=== PATIENT | female | born 1930 | race Caucasian/White ===

== ENCOUNTER 2017-12-25 16:08 | Inpatient (IN) | payer MEDICARE, OTHER ==
[~2017-12-25] VITALS: Ht 152.4 cm; Wt 62.6 kg
[~2017-12-25 16:08] MED LIST: ALLOPURINOL100 MG PO; AMLODIPINE BESYL5 MG PO; BACTRIM DS TAB1 EACH PO; CALCIUM 500+D1 EACH PO; CARAFATE1 GM/10 ML PO; CIPRO500 MG PO; FERROUS SULFAT325 MG PO; GABAPENTIN300 MG PO; LOSARTAN POTAS100 MG PO; METHOCARBAMOL750 MG PO; MYRBETRIQ50 MG PO; OMEPRAZOLE40 MG PO; PANTOPRAZOLE SO40 MG PO; ROBITUSSIN-COU237 ML PEG; TEMAZEPAM15 MG PO; TYLENOL WITH C1 EACH PO; VITAMIN B-121000 MC1; VITAMIN B-121000 MCG IM; VITAMIN D32000 UNIT PO; ZOFRAN ODT4 MG SL
--- OUTSIDE RECORDS SUMMARY | 2017-12-25 16:11 | XMS REPORT ---
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 Allergies, Adverse Reactions, Alerts This patient has no known allergies or adverse reactions. Medications This patient has no known medications. Results Test Description Test Time Test Comments Text Results Atomic Results Result Comments PROTEIN ELECTROPHORESIS, SERUM 2017-12-24 12:40:00 ALBUMIN FRACTION (BEAKER) (test ocom=564) 3.0 g/dL 3.5-5.5 ALPHA 1 FRACTION (BEAKER) (test whrf=563) 0.3 g/dL 0.2-0.4 ALPHA 2 FRACTION (BEAKER) (test iafa=360) 0.7 g/dL 0.5-0.9 BETA FRACTION (BEAKER) (test ejeo=906) 0.8 g/dL 0.6-1.1 GAMMA GLOBULIN FRACTION (BEAKER) (test upue=809) 0.9 g/dL 0.7-1.7 INTERPRETATION-119 (BEAKER) (test qsqi=1346) Slight decrease in albumin with concurrent relative increases in alpha & beta globulins. No monoclonal bands detected. TTWI-[id number]-174 (BEAKER) (test jhyg=0135) Cynthia Mccracken MD ( electronic signature) PROTEIN TOTAL SERUM, SPEP (BEAKER) (test kkqc=6366) 5.7 gm/dL 6.0-8.3 CSF CELL COUNT W/[id number] 15:42:00* Test Item Value Reference Range Comments APPEARANCE CSF (BEAKER) (test gemt=585) Clear Clear COLOR CSF (BEAKER) (test myym=894) Colorless Colorless RBC CSF (BEAKER) (test cybd=874) 76 /cu mm 0-5 WBC CSF (BEAKER) (test opjg=9298) 0 /cu mm <=5 RBCS FRESH (BEAKER) (test vfxy=5847) 100% Fresh NUMBER OF CELLS DIFF'D (BEAKER) (test bkot=4726) 0 TUBE NUMBER CSF (BEAKER) (test wvof=4540) 1 PROTEIN, [id number] 13:58:00* Test Item Value Reference Range Comments PROTEIN CSF (BEAKER) (test jejl=484) 132 mg/dL 15-45 GLUCOSE, [id number] 13:57:00* Test Item Value Reference Range Comments GLUCOSE CSF (BEAKER) (test btxs=336) 70 mg/dL 40-70 MR, BRAIN, WITHOUT [id number] 09:05:00FINAL REPORT MRI Brain without contrast Clinical History: Left hemiparesis Technique : MRI of the brain utilizing axial T2, FLAIR, GRE, DWI; sagittal and coronal T1- weighted images. Comparisons: None Findings: There is no evidence of acute infarct or hemorrhage. There is mild chronic hemosiderin staining on the right parietal opercular sulci. There is moderate periventricular and subcortical white matter T2 hyperintensity, which is nonspecific but compatible with chronic microvascular ischemic change. There is generalized parenchymal volume loss without hydrocephalus, midline shift, or apparent mass effect. There are no extra-axial fluid collections. The major intracranial flow-voids appear patent. There is bilateral cataract surgery. There is prominent soft tissue pannus formation dorsal to the odontoid process which results in severe appearing central canal stenosis at the foramen magnum, contouring the cervicomedullary junction. Degenerative disease in the partially imaged upper cervical spine also results in moderate to severe appearing central canal stenosis at C2-C3, C3-C4, and C4-C5. IMPRESSION: No evidence of acute infarct, hemorrhage, or hydrocephalus. Chronic hemosiderin staining of the right parietal opercular sulci, compatible with remote hemorrhage of uncertain etiology. Clinical correlation is requested. 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 Moderate to severe appearing upper cervical degenerative disease. If clinically warranted, this could be better evaluated with dedicated cervical imaging. Signed: Tamara Molina MDReport Verified Date/Time: 12/22/2017 09:05:29 Reading Location: [facility] Reading Room ABDOMEN/PELVIS WO [facility] [address] [address] Patient Name: EVETTE JARRELL MR #: [id number] : 1930 Age/Sex: 86/ F Req #: [id number] Adm Physician: TERI RENTERIA MD Ordered by: STEPHANIE KENNY MD Report #: [id number] Location: MED/SURG2 Room/Bed : [facility] Procedure: [id number] CT/CT ABDOMEN/PELVIS WO Exam Date: 06/07/17 Exam Time: 1615 REPORT STATUS: Signed PROCEDURE: CT ABDOMEN AND PELVIS WITHOUT CONTRAST TECHNIQUE: The abdomen and pelvis were scanned utilizing a multidetector helical scanner from the diaphragm to the lesser trochanter after the oral administration of dilute Gastrografin. No IV contrast was administered. This Coronal and sagittal multiplanar reformations were obtained. COMPARISON: [facility], CT, CT ABDOMEN/PELVIS W, 06/02/2017, 18 :45. INDICATIONS: ABDOMINAL DISTENTION FINDINGS: ABSENCE OF INTRAVENOUS CONTRAST DECREASES SENSITIVITY FOR DETECTION OF FOCAL LESIONS AND VASCULAR PATHOLOGY. LOWER THORAX: Trace bilateral pleural effusions with associated bilateral lower lobe compressive atelectasis, left greater than right. Atherosclerotic calcification of the aortic valve, coronary arteries and thoracic aorta. Small to moderate hiatal hernia.. HEPATOBILIARY: No focal hepatic lesions. No biliary ductal dilatation. Hyperdense material in the gallbladder lumen likely represents vicarious excretion of contrast.. SPLEEN: No splenomegaly. PANCREAS: No focal masses or ductal dilatation. ADRENALS: No adrenal nodules. KIDNEYS/URETERS: No hydronephrosis, stones, or solid mass lesions. PELVIC ORGANS/BLADDER: Bladder is decompressed, with Doyle catheter in place. Uterus is unremarkable. No adnexal masses. PERITONEUM / RETROPERITONEUM: Interval decrease in size of fluid in the pelvis, which has higher attenuation than water (29HU). No pneumoperitoneum. LYMPH NODES: No lymphadenopathy. VESSELS: Atherosclerotic calcification of the abdominal aorta and iliac vessels. GI TRACT: Persistent moderate to marked thickening of the pylorus, first and second portions of the duodenum and surrounding stranding, similar to prior exam, in area suspicious for perforated duodenal ulcer. No oral contrast extravasation. Rest of the bowel shows no dilation, wall thickening, or obstruction. Contrast is noted in the distal small and large bowel. Small amount of retained stool in the sigmoid and rectum. BONES AND SOFT TISSUES: Dextro scoliosis with marked multilevel degenerative disc and joint disease, unchanged. Generalize anasarca. Several foci of air noted in the anterior abdominal wall, some of which, associated with focal stranding, likely represent injection sites (for example, series 2, images 50 and 69). IMPRESSION: 1. No bowel dilation or evidence of obstruction. Small amount of retained stool in the sigmoid and rectum. 2. Persistent moderate to marked thickening of the pylorus, first and second portions of the duodenum and surrounding stranding, similar to prior exam, in area suspicious for perforated duodenal ulcer. Exam is limited by lack of intravenous contrast. No laura pneumoperitoneum. 3. Interval decrease in size of pelvic fluid which has higher density than water, and may represent proteinaceous/hemorrhagic component in this patient with suspected perforated ulcer. Pawel Dillon M.D. Dictated by: Pawel Dillon M.D. on 06/09/2017 at 17:50 Electronically approved by : Pawel Dillon M.D. on 06/09/2017 at 17:50 Dictated By: PAWEL DILLON MD 49 Transcribed By: LENY on 06/09/171749 COPY TO: STEPHANIE KENNY MD CHEST XRAY LINE PLACEMENT [address] [place] [id number] Patient Name: EVETTE JARRELL MR #: [id number] : 1930 Age/Sex: 86/F Req # : [id number] Adm Physician: TERI RENTERIA MD Ordered by: JEREMIAH MCGUIRE MD Report #: [id number] Location: MED/SURG2 Room/Bed: [facility] _ Procedure: [id number] DX/CHEST XRAY LINE PLACEMENT Exam Date: Exam Time: REPORT STATUS: Signed EXAM: CHEST XRAY LINE PLACEMENT, AP 1 view DATE: 06/05/2017 1:32 PM Time stamp on exam: 1336 hours INDICATION: Check central line placement COMPARISON: AP view of the chest June 05, 2017 FINDINGS: LINES/TUBES: Interval placement of left internal jugular vein central line with tip terminating in expected location of the proximal superior vena cava. LUNGS: Left lower lobe atelectasis. PLEURA: No effusions or pneumothorax. HEART AND MEDIASTINUM: Normal size and contour. BONES AND SOFT TISSUES: No acute findings. IMPRESSION: Interval placement of left internal jugular vein central line with tip terminating in expected location of the proximal superior vena cava. Signed by: Dr. Varsha Bowens M.D. on 06/05/2017 1:55 PM Dictated By: VARSHA BOWENS MD 1351 COPY TO: JEREMIAH MCGUIRE MD CHEST SINGLE (PORTABLE) [address] [place] [address] Patient Name: EVETTE JARRELL MR #: [id number] : 1930 Age/Sex: 86/F Req #: [id number] Adm Physician: TERI RENTERIA MD Ordered by: TERI RENTERIA MD Report #: [id number] Location: MED/SURG2 Room/Bed: [facility] _ Procedure: [id number] DX/CHEST SINGLE (PORTABLE) Exam Date : 06/05/17 Exam Time: 0945 REPORT STATUS: Signed EXAM: CHEST SINGLE (PORTABLE), AP 1 view DATE: 06/05/2017 9:42 AM Time stamp on exam: 0953 hours INDICATION: Rule out pneumothorax after central line attempt COMPARISON: AP view the chest June 05, 2017 FINDINGS: LINES/TUBES: Interval removal of right approach PICC. LUNGS: Bibasilar atelectasis, left greater than right. PLEURA: No effusions or pneumothorax. HEART AND MEDIASTINUM: Stable appearance. BONES AND SOFT TISSUES: No acute findings. IMPRESSION: Interval removal of right approach PICC. No pneumothorax. Signed by: Dr. Varsha Bowens M.D. on 06/05/2017 11:03 AM Dictated By: VARSHA BOWENS MD 02 Transcribed By: KAVON on 06/05/171102 COPY TO: TERI RENTERIA MD CHEST SINGLE ( PORTABLE) [place] [address] Patient Name: EVETTE JARRELL MR #: [id number] : 1930 Age/Sex: 86/F Req #: [id number] Adm Physician: TERI RENTERIA MD Ordered by: TERI RENTERIA MD Report # : [id number] Location: MED/SURG2 Room/Bed: [facility] Procedure: [id number] DX/CHEST SINGLE (PORTABLE) Exam Date: 06/05/17 Exam Time: 0514 REPORT STATUS: Signed EXAM: CHEST SINGLE (PORTABLE), AP 1 view DATE: 06/05/2017 6:00 AM Time stamp on exam: 0514 hours INDICATION: Fecal impaction COMPARISON: AP view of the chest June 02, 2017 FINDINGS: LINES/TUBES: Interval retraction of the right approach PICC, which terminates in the proximal superior vena cava. LUNGS : Bibasilar subsegmental atelectasis. PLEURA: No effusions or pneumothorax. HEART AND MEDIASTINUM: Mild cardiac enlargement. BONES AND SOFT TISSUES: No acute findings. IMPRESSION: Slight interval retraction of the right approach PICC, which now terminates in the proximal superior vena cava. Signed by: Dr. Varsha Bowens M.D. on 2016 5:50 AM Dictated By: VARSHA BOWENS MD 0550 Transcribed By: KAVON on 06/05/17 0550 COPY TO: TERI RENTERIA MD CHEST XRAY LINE PLACEMENT [place] [address] Patient Name: EVETTE JARRELL MR #: [id number] : 1930 Age/Sex: 86/F Req #: [id number] Adm Physician: TERI RENTERIA MD Ordered by: TERI RENTERIA MD Report #: [id number] Location: MED/ SURG2 Room/Bed: [facility] Procedure: [id number] DX/CHEST XRAY LINE PLACEMENT Exam Date: 06/02/17 Exam Time: 1801 REPORT STATUS: Signed PROCEDURE: A single AP view of the chest. COMPARISON: [facility], DX, ABDOMEN ACUTE SERIES W/PA CXR, 05/31/2017, 7:35. [facility], DX, CHEST 2 VIEWS, 04/06/2017, 3 :48. INDICATIONS: PICC LINE PLACEMENT FINDINGS: See impression. IMPRESSION: 1. interval placement of right-sided PICC line, which has its distal tip projecting at the cavoatrial junction. 2. Mild atelectatic changes in the left lower lung. No consolidation. 3. Cardiac silhouette and pulmonary vasculature are stable. Pawel Dillon M.D. Dictated by: Pawel Dillon M.D. on 06/02/2017 at 18:38 Electronically approved by: Pawel Dillon M.D. on 06/02/2017 at 18:38 Dictated By: PAWEL DILLON MD 37 Transcribed By: LENY on 06/02/171837 COPY TO: TERI RENTERIA MD CT ABDOMEN/PELVIS W [place] [address] Patient Name: EVETTE JARRELL MR #: [id number] : 1930 Age/Sex: 86/F Req #: [id number] Adm Physician: TERI RENTERIA MD Ordered by: STEPHANIE KENNY MD Report #: [id number] Location: MED/SURG Room/Bed: [facility] _ Procedure: [id number] CT/CT ABDOMEN/PELVIS W Exam Date: Exam Time: 1855 REPORT STATUS: Signed EXAM: CT Abdomen and Pelvis WITH contrast INDICATION: Fecal impaction, perforated ulcer COMPARISON: CT abdomen and pelvis from 05/31/2017 TECHNIQUE : Abdomen and pelvis were scanned utilizing a multidetector helical scanner from the lung base to the pubic symphysis after administration of IV contrast. Coronal and sagittal reformations were obtained. Routine protocol was performed. Scan was performed when during portal venous phase. IV CONTRAST: 100 mL of Isovue-370 ORAL CONTRAST: Water RADIATION DOSE: Total DLP: 659.4 mGy*cm Estimated effective dose: (DLP x 0.015 x size factor) mSv COMPLICATIONS: None FINDINGS: LINES and TUBES: None. LOWER THORAX: Small left lower lobe consolidation with air bronchograms, mildly increased since prior exam. Trace left pleural effusion, increased. HEPATOBILIARY: No focal hepatic lesions. No biliary ductal dilation. GALLBLADDER: No radio-opaque stones or sludge. No wall thickening. SPLEEN: No splenomegaly. PANCREAS: No focal masses or ductal dilatation. ADRENALS: No adrenal nodules KIDNEYS/URETERS: The kidneys are atrophic. No hydronephrosis. No cystic or solid mass lesions. No stones. GI TRACT: Worsening distention of the duodenum, now measuring 3.9 cm in diameter compared to 3.2 cm as well as worsening wall thickening and new appearance of surrounding fat stranding. There is a contain moderate amount of fluid surrounding the duodenum, which appears more prominent when compared to prior exam (series 2, image 30). No free air collections surrounding the duodenum. Appendix is normal. PELVIC ORGANS/BLADDER: Doyle catheter within a decompressed urinary bladder. LYMPH NODES: No lymphadenopathy. VESSELS: Unremarkable. PERITONEUM / RETROPERITONEUM: There is moderate of amount of free fluid in the abdomen and pelvis, significantly increased when compared to 05/31/2017. BONES: Scoliosis with severe degenerative changes of the lumbar spine. SOFT TISSUES: Anasarca. IMPRESSION: Patient with recent perforated ulcer with interval increased distention of the duodenum, worsening wall thickening, surrounding fat stranding, and small amount of contained fluid collection. No new areas of free air surrounding the duodenum or abdomen/pelvis. Findings concerning for superimposed infection or ischemic duodenum. Anasarca and moderate ascites, worse since 05/31/2017. Signed by: Dr. Brittney Smith M.D. on 06/02/2017 7:44 PM Dictated By: BRITTNEY SMITH MD 43 Transcribed By: KAVON on 06/02/171943 COPY TO: STEPHANIE KENNY MD CT ABDOMEN/PELVIS W [place] [address] Patient Name: EVETTE JARRELL MR #: [id number] : 1930 Age/Sex: 86/F Req #: [id number] Adm Physician: TERI RENTERIA MD Ordered by: EMERITA ALLEN MD Report #: [id number] Location: MED/SURG2 Room/Bed: [facility] Procedure: [id number] CT/CT ABDOMEN/PELVIS W Exam Date: 05/31/17 Exam Time: 1050 REPORT STATUS: Signed PROCEDURE: CT ABDOMEN AND PELVIS WITH CONTRAST TECHNIQUE: The abdomen and pelvis were scanned utilizing a multidetector helical scanner from the diaphragm to the lesser trochanter after the IV administration of 100 cc of Isovue 370. Coronal and sagittal multiplanar reformations were obtained. COMPARISON: Acute abdominal series earlier 05/31/2017. INDICATIONS: UPPER ABDOMEN PAIN FINDINGS: LOWER THORAX: Bandlike atelectasis in the dependent lower lobes. Moderate sliding hiatal hernia.. HEPATOBILIARY: No focal hepatic lesions. No biliary ductal dilatation. SPLEEN: No splenomegaly. PANCREAS: Soft tissue stranding surrounding the pancreatic head and uncinate process. The pancreatic tail is indistinct. No discrete mass lesion. ADRENALS: No adrenal nodules. KIDNEYS/URETERS: Lobulation of the renal contours may be congenital or related to prior infectious/inflammatory process. No hydronephrosis or solid renal mass lesion. PELVIC ORGANS/BLADDER: The urinary bladder is collapsed around a Doyle catheter. The uterus is neutral in position and appears normal. No adnexal mass. PERITONEUM / RETROPERITONEUM: There is intermediate attenuation free fluid surrounding the duodenum the, pylorus, and tracking along the right paracolic gutter into the pelvis (average internal attenuation 20-25 Hounsfield units). No laura pneumoperitoneum. LYMPH NODES : No pelvic sidewall or retroperitoneal lymphadenopathy. VESSELS: The atherosclerotic calcification of the abdominal aorta, major branch vessels, and iliac arterial systems without aneurysmal dilatation. Celiac axis and gastroduodenal artery are patent. 1.4 cm ovoid hyperattenuating structure in the splenic hilum with adjacent soft tissue attenuation as seen on series 2 image 23 lies immediately adjacent to the pancreatic tail. Portal vein and splenic vein are patent. GI TRACT: There is pronounced wall thickening and mucosal enhancement of the pylorus and duodenum, with suspected wall discontinuity seen on series 2 image 33. The large bowel shows no distention or wall thickening. The distal small bowel is unremarkable. BONES AND SOFT TISSUES: No osseous destructive lesions. Multilevel degenerative disc disease and degenerative facet arthropathy of the lumbar spine with dextroscoliosis. No focal soft tissue abnormalities. IMPRESSION: Findings suggestive of perforated duodenal ulcer with extensive surrounding duodenal and pyloric inflammation and free fluid, though without overt pneumoperitoneum. Surgical consultation is suggested. 1.4 cm hyperattenuating structure in the region of the pancreatic tail may represent an aneurysm or pseudoaneurysm of the splenic artery or distal pancreatic arterial branch. CT angiography of the abdomen is suggested when clinically feasible. Findings were discussed by telephone with Dr. Allen in the emergency center at 11:50 AM 05/31/2017. Dictated by: Stephanie Nolan M.D. on 05/31/2017 at 12:00 Electronically approved by: Stephanie Nolan M.D. on 05/31/2017 at 12:00 Dictated By: STEPHANIE NOLAN MD 1201 Transcribed By: LENY on 05/31/17 1201 COPY TO: EMERITA ALLEN MD ABDOMEN ACUTE SERIES W/PA CXR [place] [address] Patient Name: EVETTE JARRELL MR #: [id number] : 1930 Age/Sex: 86/F Req #: [id number] Adm Physician: Ordered by: EMERITA ALLEN MD Report #: [id number] Location: ER Room/Bed: Procedure: [id number] DX/ ABDOMEN ACUTE SERIES W/PA CXR Exam Date: Exam Time : REPORT STATUS: Signed PROCEDURE: ABDOMEN ACUTE SERIES W/PA CXR COMPARISON: Chest radiograph 04/06/2017. INDICATIONS: CONSTIPATION FINDINGS: CHEST: Lungs volumes are low with vascular crowding in the bases. No consolidation, pleural effusion, or pneumothorax. Tortuosity and atherosclerotic calcification of the thoracic aorta. Normal heart size for technique. No acute osseous abnormality. Degenerative changes of the shoulder girdles. No pneumoperitoneum. BOWEL PATTERN: No dilated , air-filled loops of small bowel. Gas and fecal material is noted throughout the large bowel and rectum. No mass effect or organomegaly. Atherosclerotic calcifications. Advanced multilevel degenerative disc changes of the lumbar spine with dextroscoliosis centered at L3. SOFT TISSUES: No acute findings. BONES: As above. CONCLUSION: Low lung volumes without acute cardiopulmonary abnormality. Nonobstructive bowel gas pattern. Large amount of fecal material throughout the large bowel in keeping with the provided clinical history of constipation. Dictated by: Stephanie Nolan M.D. on 05/31/2017 at 8:37 Electronically approved by: Stephanie Nolan M.D. on 05/31/2017 at 8:37 Dictated By: STEPHANIE NOLAN MD 6 Transcribed By: LENY on 05/31/17836 COPY TO: EMERITA ALLEN MD ECHO COMPLETE (ECHOCARDIOGRAM) [place] [address] Patient Name : EVETTE JARRELL MR #: [id number] : 1930 Age/Sex: 86/F Adm Physician : TERI RENTERIA MD Admit Date : 04/01/17 Location : MED/SURG Room/Bed : [facility] REPORT: Cardiology Report DATE OF STUDY: April 05, 2017 ECHOCARDIOGRAM M-MODE: Dilated left atrium. Normal left ventricular contractility. Left ventricular hypertrophy. Aortic sclerosis. Sclerosis of the mitral valve annulus. Normal tricuspid valve. No pericardial effusion. SECTOR SCAN: Mildly dilated left atrium. Left ventricular hypertrophy. Normal contractility. Estimated ejection fraction 65%. Aortic valve is mildly sclerotic. Mitral annulus is mildly sclerotic. Normal tricuspid valve. No pericardial effusion. CARDIAC DOPPLER STUDY WITH COLOR: Left ventricular outflow velocity is normal. There is trace mitral and tricuspid regurgitation. Pulmonary artery systolic pressure estimated at 37 mmHg. CONCLUSIONS 1. Left ventricular hypertrophy with ejection fraction of 65%. 2. Trace mitral regurgitation with mildly dilated left atrium. 3. Mild aortic sclerosis without stenosis. 4. Sclerosis of the mitral valve annulus. 5. Trace tricuspid regurgitation without significant pulmonary hypertension. Pulmonary artery systolic pressure estimated at 37 mmHg. DT: 2016 12:20 Job#: [id number] AR cc: MD Nancy Cyr MD Signature Date Dictated By: RAD ANTHONY MD Transcribed By: SMEDS on 04/05/17 <Electronically signed by RAD ANTHONY MD><< Signature on File>>05/31/17 0931 COPY TO:
[2017-12-25] MEDS ORDERED: SODIUM CHLORIDE 0.9% 1000ML 1,000 ML IV STA (16:45)
[2017-12-25] MEDS ORDERED: PANTOPRAZOLE INJ 40 MG in SODIUM CHLORIDE 0.9% 50ML 50 ML IV SCH (16:45)
[2017-12-25] MEDS ORDERED: ONDANSETRON HCL INJ 2 MG/ML VIAL IV STA (16:45)
[2017-12-25] MEDS ORDERED: PANTOPRAZOLE 40 MG 10ML VIAL IV SCH (16:45)
[2017-12-25] MEDS ORDERED: PANTOPRAZOLE INJ 80 MG in SODIUM CHLORIDE 0.9% 100 ML IV SCH (17:00)
[2017-12-25] MEDS ORDERED: CEFTRIAXONE SOD 1 GM VIAL IM ONE (17:30)
[2017-12-25 17:57] LABS: BASOPHILS # (AUTO) 0.1 (0.0-0.1); BASOPHILS % 0.6 % (0.0-1.0); EOSINOPHILS # (AUTO) 0.2 (0.0-0.4); HEMATOCRIT 28.1 % (34.2-44.1); HEMOGLOBIN 9.1 g/dL (12.0-16.0); LYMPHOCYTES # (AUTO) 1.2 (1.0-3.2); LYMPHOCYTES % 14.6 % (18.0-39.1); MEAN CORPUSCULAR HEMOGLOBIN 28.6 pg (28-32); MEAN CORPUSCULAR HGB CONC 32.4 g/dL (31-35); MEAN CORPUSCULAR VOLUME 88.4 fL (81-99); MONOCYTES # (AUTO) 0.7 (0.2-0.8); MONOCYTES % 8.5 % (4.4-11.3); NEUTROPHILS # (AUTO) 6.3 (2.1-6.9); NEUTROPHILS % 73.8 % (38.7-80.0); PLATELET COUNT 289 x10e3/uL (140-360); RED BLOOD COUNT 3.18 x10e6/uL (3.6-5.1); RED CELL DISTRIBUTION WIDTH 16.3 % (11.7-14.4)
--- NOTE | 2017-12-25 17:57 | Diagnostic Imaging Report ---
EXAMINATION: CHEST SINGLE (PORTABLE) INDICATION: Vomiting. [facility] from [facility]. COMPARISON: None FINDINGS: AP view TUBES and LINES: None. LUNGS: Lungs are moderately inflated. There are bibasilar atelectasis. There is no evidence of pneumonia or pulmonary edema. PLEURA: No pleural effusion or pneumothorax. HEART AND MEDIASTINUM: The cardiomediastinal silhouette is unremarkable. There are atherosclerotic calcifications within the aorta. BONES AND SOFT TISSUES: No acute osseous lesion. Soft tissues are unremarkable. UPPER ABDOMEN: No free air under the diaphragm. IMPRESSION: Mild bibasilar atelectasis. No acute abnormalities. Signed by: Dr. Gerald Recio M.D. on 12/25/2017 5:53 PM
[2017-12-25 18:07] LABS: INR 1.15; PROTHROMBIN TIME 13.8 seconds (11.9-14.5)
[2017-12-25 18:08] LABS: PARTIAL THROMBOPLASTIN TIME 31.9 seconds (23.8-35.5)
[2017-12-25 18:15] LABS: BILIRUBIN,URINE NEGATIVE (NEGATIVE); KETONES,URINE TRACE (NEGATIVE); LEUKOCYTE ESTERASE ,URINE NEGATIVE (NEGATIVE); NITRITE,URINE NEGATIVE (NEGATIVE); PROTEIN,URINE DIPSTICK NEGATIVE (NEGATIVE); URINE UROBILINOGEN 0.2 mg/dL (0.2 - 1)
[2017-12-25 18:18] LABS: ALANINE AMINOTRANSFERASE 8 IU/L (0-55); ALBUMIN 3.2 g/dL (3.5-5.0); ALKALINE PHOSPHATASE 78 IU/L (40-150); ANION GAP 12.4 mmol/L (8-16); BLOOD UREA NITROGEN 47 mg/dL (7-26); BUN/CREATININE RATIO 60 (6-25); CALCIUM 9.9 mg/dL (8.4-10.2); CARBON DIOXIDE 27 mmol/L (22-29); CHLORIDE 100 mmol/L (98-107); CREATINE KINASE 50 IU/L (29-168); CREATININE, SERUM 0.78 mg/dL (0.57-1.11); EST GLOMERULAR FILTRATION RATE > 60 ML/MIN (60-); GLUCOSE 142 mg/dL (74-118); LIPASE 18 U/L (8-78); MAGNESIUM 1.4 MG/DL (1.3-2.1); POTASSIUM 4.4 mmol/L (3.5-5.1); SODIUM 135 mmol/L (136-145)
[2017-12-25 18:19] LABS: CLARITY,URINE HAZY (CLEAR); COLOR,URINE YELLOW (YELLOW)
[2017-12-25 18:25] LABS: AMORPHOUS SEDIMENT,URINE FEW (FEW); BACTERIA,URINE MODERATE /HPF; EPITHELIAL CELLS,URINE FEW /LPF; MUCUS,URINE MODERATE (RARE); RBC,URINE 0-5 /HPF (0-5)
[2017-12-25 18:37] LABS: THYROID STIMULATING HORMONE 5.846 uIU/mL (0.350-4.940)
[2017-12-25] MEDS ORDERED: DICYCLOMINE HCL10 MG PO (19:23)
[2017-12-25] MEDS ORDERED: COLACE100 MG PO (19:39)
[2017-12-25] MEDS ORDERED: ROBITUSSIN-COU237 ML PO (19:51)
[2017-12-25] MEDS ORDERED: VOLTAREN100 GM TOP (19:51)
[2017-12-25] MEDS ORDERED: lidocaine patch (19:51)
[2017-12-25] MEDS ORDERED: ZINC OXIDE56.7 GM TOP (19:51)
[2017-12-25] MEDS ORDERED: [UNRECOGNIZED DRUG - CODE] INH (19:51)
[2017-12-25] MEDS: SODIUM CHLORIDE 0.9% 1000ML 1,000 ML IV SCH (21:54)
[2017-12-25] MEDS ORDERED: PANTOPRAZOLE 40 MG 10ML VIAL ONE (23:09)
[2017-12-25] MEDS: PANTOPRAZOLE INJ 80 MG in SODIUM CHLORIDE 0.9% 100 ML IV SCH (23:35)
[2017-12-26 00:12] VITALS: BP 118/60
[2017-12-26 03:14] LABS: HEMATOCRIT 21.1 % (34.2-44.1)
[2017-12-26 03:28] LABS: ALANINE AMINOTRANSFERASE 7 IU/L (0-55); ALBUMIN 2.8 g/dL (3.5-5.0); ALBUMIN/GLOBULIN RATIO 1.1 (0.8-2.0); ALKALINE PHOSPHATASE 59 IU/L (40-150); ANION GAP 9.1 mmol/L (8-16); BLOOD UREA NITROGEN 45 mg/dL (7-26); BUN/CREATININE RATIO 60 (6-25); CARBON DIOXIDE 25 mmol/L (22-29); CHLORIDE 102 mmol/L (98-107); CREATININE, SERUM 0.75 mg/dL (0.57-1.11); EST GLOMERULAR FILTRATION RATE > 60 ML/MIN (60-); GLUCOSE 129 mg/dL (74-118); POTASSIUM 4.1 mmol/L (3.5-5.1); SODIUM 132 mmol/L (136-145)
[2017-12-26 03:35] LABS: CREATINE KINASE MB 1.5 ng/mL (0-5.0)
[2017-12-26 04:00] VITALS: BP 127/56
[2017-12-26] MEDS ORDERED: SODIUM CHLORIDE 0.9% 250ML 250 ML IV ONE (04:15)
[2017-12-26] MEDS: PANTOPRAZOLE INJ 80 MG in SODIUM CHLORIDE 0.9% 100 ML IV SCH ×2 (10:07→17:53)
[2017-12-26] MEDS: SODIUM CHLORIDE 0.9% 1000ML 1,000 ML IV SCH ×3 (10:07→16:35)
[2017-12-26] MEDS: SUCRALFATE 1 GM/10 ML SUSP PO SCH ×3 (12:21→20:54)
[2017-12-26 12:40] VITALS: BP 140/64
[2017-12-26] MEDS ORDERED: SODIUM CHLORIDE 0.9% 250ML 250 ML ONE (14:01)
[2017-12-26 14:20] LABS: HEMOGLOBIN 8.5 g/dL (12.0-16.0)
[2017-12-26] MEDS: GABAPENTIN 400 MG CAP PO SCH ×2 (14:31→20:54)
[2017-12-26] MEDS ORDERED: GABAPENTIN 300 MG CAP PO SCH (15:00)
[2017-12-26 16:00] VITALS: BP 138/63
[2017-12-26] MEDS ORDERED: PANTOPRAZOLE 40 MG 10ML VIAL ONE (16:10)
[2017-12-26] MEDS ORDERED: SODIUM CHLORIDE 0.9% 200 ML ONE (16:13)
[2017-12-26 20:00] VITALS: BP 138/63
[2017-12-26] MEDS: TEMAZEPAM 15 MG CAP PO SCH (20:54)
[2017-12-27] VITALS (8 sets, daily range): BP systolic 124–167; BP diastolic 62–82
[2017-12-27] MEDS ORDERED: PANTOPRAZOLE 40 MG 10ML VIAL ONE ×3 (03:54→23:40)
[2017-12-27] MEDS: PANTOPRAZOLE INJ 80 MG in SODIUM CHLORIDE 0.9% 100 ML IV SCH ×3 (04:00→23:56)
[2017-12-27] MEDS: SODIUM CHLORIDE 0.9% 1000ML 1,000 ML IV SCH (04:03)
[2017-12-27 06:41] LABS: HEMATOCRIT 25.9 % (34.2-44.1); HEMOGLOBIN 8.6 g/dL (12.0-16.0)
[2017-12-27 07:21] LABS: ALANINE AMINOTRANSFERASE 7 IU/L (0-55); ALBUMIN 2.6 g/dL (3.5-5.0); ALBUMIN/GLOBULIN RATIO 1.1 (0.8-2.0); ALKALINE PHOSPHATASE 53 IU/L (40-150); ANION GAP 9.6 mmol/L (8-16); BLOOD UREA NITROGEN 22 mg/dL (7-26); BUN/CREATININE RATIO 30 (6-25); CALCIUM 8.7 mg/dL (8.4-10.2); CARBON DIOXIDE 23 mmol/L (22-29); CHLORIDE 109 mmol/L (98-107); CREATININE, SERUM 0.73 mg/dL (0.57-1.11); EST GLOMERULAR FILTRATION RATE > 60 ML/MIN (60-); GLUCOSE 117 mg/dL (74-118); POTASSIUM 3.6 mmol/L (3.5-5.1); SODIUM 138 mmol/L (136-145)
[2017-12-27] MEDS: SUCRALFATE 1 GM/10 ML SUSP PO SCH ×4 (08:03→20:28)
[2017-12-27] MEDS: GABAPENTIN 400 MG CAP PO SCH ×3 (08:03→20:28)
[2017-12-27] MEDS: LOSARTAN POTASSIUM 100 MG TAB PO SCH (08:03)
[2017-12-27] MEDS: CALCIUM CARBONATE 500 MG CHEWABLE TABS PO SCH (08:03)
[2017-12-27 12:10] LABS: HEMATOCRIT 28.5 % (34.2-44.1); HEMOGLOBIN 9.3 g/dL (12.0-16.0)
[2017-12-27] MEDS: ROPINIROLE HCL 1 MG TAB PO PRN (17:00)
[2017-12-27 18:40] LABS: HEMATOCRIT 28.3 % (34.2-44.1); HEMOGLOBIN 9.2 g/dL (12.0-16.0)
[2017-12-27] MEDS: TEMAZEPAM 15 MG CAP PO SCH (20:28)
[2017-12-27] MEDS ORDERED: SODIUM CHLORIDE 0.9% 100 ML ONE (23:42)
[2017-12-28] VITALS (7 sets, daily range): BP systolic 150–168; BP diastolic 65–113
[2017-12-28] MEDS: ROPINIROLE HCL 1 MG TAB PO PRN ×2 (00:32→20:56)
[2017-12-28 06:46] LABS: HEMATOCRIT 27.9 % (34.2-44.1)
[2017-12-28] MEDS: SUCRALFATE 1 GM/10 ML SUSP PO SCH ×4 (07:30→20:55)
[2017-12-28] MEDS: GABAPENTIN 400 MG CAP PO SCH ×3 (07:59→20:55)
[2017-12-28] MEDS: CALCIUM CARBONATE 500 MG CHEWABLE TABS PO SCH (08:00)
[2017-12-28] MEDS: LOSARTAN POTASSIUM 100 MG TAB PO SCH (09:00)
[2017-12-28] MEDS ORDERED: PANTOPRAZOLE 40 MG 10ML VIAL ONE ×2 (10:14→20:35)
[2017-12-28] MEDS: PANTOPRAZOLE INJ 80 MG in SODIUM CHLORIDE 0.9% 100 ML IV SCH ×2 (10:29→20:55)
--- NOTE | 2017-12-28 11:46 | Progress Note ---
DATE: December 28, 2017 Ms. Andrew is stable. Hemoglobin and hematocrit are still stable. She is awake, alert and oriented. No signs of active GI bleed. I had the chance to talk to her niece, and quite a bit of information was obtained. First of all, she was receiving at the [place] [facility], in addition to allopurinol, cream of Voltaren, which also potentially can be absorbed into her system, and daily oral naproxen. On top of this, she was receiving a blood thinner Xarelto. I think that is what probably induced the recent episode of GI bleed. In addition, her niece claims she has had no colonoscopy for many, many years. My plan for her is still to obtain an upper endoscopy. As far as the colonoscopy, we will discuss again with the family since the patient is 87 years old and the risks in her case may outweigh the benefits, and she has no symptoms. Of course, I advised the niece that we need to monitor her medication list and make sure she does not use nonsteroidal anti-inflammatory drugs especially when she is on blood thinner, and we will keep her on her antacid medication. Job#: [id number]
--- NOTE | 2017-12-28 14:30 | Consultation ---
DATE OF CONSULTATION: December 26, 2017 Ms. Andrew is an 87-year-old lady known to me from previous consultation here at this hospital back in March of last year when she presented with similar complaint of GI bleed. She was evaluated then with upper endoscopy, which showed severe gastritis, negative Helicobacter pylori. She was sent back to the group home, and now she is admitted again with episode of all of the sudden started feeling nauseous, and she started vomiting coffee-ground material. In talking to the patient, she had noted the color of her stool prior to that had changed to black. Besides her feeling nauseous, no complaint of heartburn, acid reflux, abdominal discomfort, trouble with her bowels. She claimed her diet being good. REVIEW OF SYSTEMS: Unremarkable. MEDICATIONS: She is on Pantoprazole, Carafate, gabapentin, Requip, Restoril, Tums, and Cozaar. ALLERGIES: SHE IS ALLERGIC TO PENICILLIN. SOCIAL: She drinks wine every day, but does not smoke. PAST SURGICAL HISTORY: She had neck surgery. She claims to have had stomach surgery though that is not sure. PHYSICAL EXAMINATION GENERAL: She is awake and alert. VITALS: She is hemodynamically stable. Temperature 97.9, pulse 68, respiratory rate 19, blood pressure 138/63. HEENT: Normal sclerae. NECK: Supple. LUNGS: Clear. HEART: Irregularly irregular. Occasional regular beat. ABDOMEN: Soft, nontender and obese. No mass. No organomegaly. Bowel sounds present. EXTREMITIES: No edema. LAB TESTS: BUN is 45, creatinine 0.75, sodium 132, potassium 4, magnesium 1.4. TSH 5.8. Liver function normal. Hemoglobin on arrival was 8.5, but then dropped to 7. She received 2 units of blood, and current hemoglobin is 9.1. Platelets are normal. PT and PTT are normal. Urinalysis unremarkable. Stool occult blood is positive. IMPRESSION: I am quite puzzled with her recurrent gastrointestinal bleed since her last endoscopy only revealed severe gastritis and some acid reflux. Will plan to discuss the case with her niece who has the power of die drawing checker. A couple of issues I need to find out: 1. If she was taking her acid medication at the group home. 2. If she was receiving any nonsteroidal anti-inflammatory drug. 3. If she truly had colonoscopy. The patient claimed that she had a colonoscopy about a year ago, but no report available. In the meantime, she is stable. Will keep monitoring her hemoglobin and hematocrit. Will keep her on Pantoprazole, and will plan for upper endoscopy. Job#: [id number] DONY
[2017-12-28] MEDS ORDERED: CLONIDINE HCL 0.1 MG TAB PO PRN (15:30)
[2017-12-28] MEDS ORDERED: PROPOFOL IV EMULSION 10 MG/ML 50 ML VIAL ONE (17:13)
[2017-12-28] MEDS ORDERED: SODIUM CHLORIDE 0.9% 50ML 100 ML ONE (20:40)
[2017-12-28] MEDS: TEMAZEPAM 15 MG CAP PO SCH (20:55)
[2017-12-29] VITALS: BP 151/78
[2017-12-29 04:00] VITALS: BP 158/74
[2017-12-29] MEDS ORDERED: PANTOPRAZOLE 40 MG 10ML VIAL ONE (05:05)
[2017-12-29] MEDS ORDERED: SODIUM CHLORIDE 0.9% 50ML 100 ML ONE (05:06)
[2017-12-29] MEDS ORDERED: SODIUM CHLORIDE 0.9% 250ML 250 ML ONE (05:11)
[2017-12-29] MEDS: PANTOPRAZOLE INJ 80 MG in SODIUM CHLORIDE 0.9% 100 ML IV SCH (05:15)
[2017-12-29 06:52] LABS: EOSINOPHILS # (AUTO) 0.4 (0.0-0.4); EOSINOPHILS % 9.1 % (0.0-6.0); HEMOGLOBIN 8.9 g/dL (12.0-16.0); LYMPHOCYTES # (AUTO) 1.1 (1.0-3.2); LYMPHOCYTES % 26.2 % (18.0-39.1); MEAN CORPUSCULAR VOLUME 87.9 fL (81-99); MONOCYTES # (AUTO) 0.6 (0.2-0.8); MONOCYTES % 13.9 % (4.4-11.3); NEUTROPHILS # (AUTO) 2.1 (2.1-6.9); NEUTROPHILS % 49.3 % (38.7-80.0); PLATELET COUNT 203 x10e3/uL (140-360); RED BLOOD COUNT 3.07 x10e6/uL (3.6-5.1); RED CELL DISTRIBUTION WIDTH 16.3 % (11.7-14.4)
[2017-12-29 07:30] VITALS: BP 94/52
[2017-12-29] MEDS ORDERED: PANTOPRAZOL 40MG/SOD CHL 0.9% 50 ML IV SCH (07:30)
[2017-12-29 07:36] VITALS: BP 94/52
[2017-12-29] MEDS: SUCRALFATE 1 GM/10 ML SUSP PO SCH ×3 (08:06→16:43)
[2017-12-29] MEDS: LOSARTAN POTASSIUM 100 MG TAB PO SCH (09:13)
[2017-12-29] MEDS: CALCIUM CARBONATE 500 MG CHEWABLE TABS PO SCH (09:13)
[2017-12-29] MEDS: GABAPENTIN 400 MG CAP PO SCH ×2 (09:13→14:38)
[2017-12-30] MEDS ORDERED: PANTOPRAZOLE SOD 40 MG TABEC PO SCH (07:30)
--- NOTE | 2018-01-03 09:11 | Progress Note ---
DATE: After upper endoscopy, which was basically normal, I had a long discussion with her niece, the power of assistant prosecuting attorney. Explained to her at this point nothing indicating the cause of her GI bleed. Of course, using nonsteroidal anti-inflammatory drugs and on blood thinner is not very advisable. However, I indicated to the niece that the next step would be to schedule her for a pill cam study for her small bowel, and perhaps colonoscopy or barium enema. Since the patient is 87 years old and she is in good health, and her blood count is stable, the niece decided to give it some thought before she comes back to us and see if she wants to pursue any further workup. Job#: [id number] DONY
== END 2017-12-29 19:00 | DRG 378 ==
LOC: ER 16:08 → ERHOLD 19:02 → MED/SURG2 12-26 12:07 → OBSVTOIN 12-27 19:27
PROVIDERS: ADMIT Internal Medicine Critical Care Medicine; ATTEND Internal Medicine Critical Care Medicine
PROC: 0DJ08ZZ Inspection of Upper Intestinal Tract, Via Natural or Artificial Opening Endoscopic (ICD-10-PCS; principal; 2017-12-28 11:00)
DX: K92.2 Gastrointestinal hemorrhage, unspecified (principal); D62 Acute posthemorrhagic anemia; E44.0 Moderate protein-calorie malnutrition; E11.9 Type 2 diabetes mellitus without complications; K27.9 Peptic ulcer, site unspecified, unspecified as acute or chronic, without hemorrhage or perforation; K29.70 Gastritis, unspecified, without bleeding; Z66 Do not resuscitate; I10 Essential (primary) hypertension; K21.9 Gastro-esophageal reflux disease without esophagitis
CPT/HCPCS: 36415; 43235; 71045; 80053; 81001; 82270; 82550; 82553; 83690; 83735; 83880; 84134; 84443; 84484; 85014; 85018; 85025; 85610; 85730; 86850; 86900; 86920; 87086; 93005; 99284; G0378; J0696; J2405; J7030; J7050; P9016